=== PATIENT | female | born 1980 | race Caucasian/White ===

== ENCOUNTER 2023-05-10 17:58 | Emergency (ER) | payer OTHER ==
[~2023-05-10] VITALS: Ht 182.9 cm; Wt 85.3 kg
[2023-05-10] MEDS ORDERED: KETOROLAC 30MG VIAL (30MG/ML) IVP ONE (19:00)
[2023-05-10] MEDS ORDERED: 0.9%NACL 1000ML 1,000 ML IV ONE (19:00)
[2023-05-10] MEDS ORDERED: IPRATROPIUM/ALBUTEROL SULFATE 3 ML SOLUTION IH ONE (19:00)
[2023-05-10] MEDS ORDERED: METOCLOPRAMIDE 10 MG/2 ML VIAL IVP ONE (19:00)
[2023-05-10] MEDS ORDERED: SOLU-MEDROL 125MG VIAL IVP ONE (19:00)
[2023-05-10] MEDS ORDERED: DiphenhydrAMINE HCL 50 MG/ML VIAL IV ONE (19:00)
[2023-05-10] MEDS ORDERED: MORPHINE 2 MG SYG IVP ONE (20:30)
[2023-05-10] MEDS ORDERED: IBUP-2070 PO (20:43)
[2023-05-10] MEDS ORDERED: FIORIT PO (20:43)
[2023-05-10 21:27] VITALS: BP 143/89; PULSE 79; RESP 16; O2SAT 99
== END 2023-05-10 21:30 | disposition home or self-care (01) ==
LOC: EDH 17:58
DX: G44.209 Tension-type headache, unspecified, not intractable (principal); Z90.710 Acquired absence of both cervix and uterus; Z98.890 Other specified postprocedural states
CPT/HCPCS: 99284; 96374; 96375; 96361; J1200; J2270; J7030; J2765